=== PATIENT | female | born 1995 | race African-American/Black ===

== ENCOUNTER 2016-10-07 13:27 | Emergency (ER) | payer OTHER ==
[2016-10-07] MEDS ORDERED: Ketorolac INJ* 30 MG/ML 1 ML VIAL IV ONE (14:04)
[2016-10-07] MEDS ORDERED: NS 0.9% 1000 ML* 1,000 ML IV ONE (14:05)
[2016-10-07 14:24] LABS: Hematocrit 43 % (35-47); Hemoglobin 14.1 g/dl (12.0-16.0); Mean Corpuscular HGB Conc 33 g/dl (31-36); Mean Corpuscular Hemoglobin 28 pg (27-31); Mean Corpuscular Volume 85 fL (80-97); Mean Platelet Volume 9 um3 (7.4-10.4); Red Blood Count 5.05 10^6/ul (4.0-5.4); Red Cell Distribution Width 13 % (10.5-15); White Blood Count 12.1 10^3/ul (3.5-10.8)
[2016-10-07 14:43] LABS: ALT 15 U/L (7-52); AST 17 U/L (13-39); Albumin 4.1 g/dL (3.2-5.2); Alkaline Phosphatase 54 U/L (34-104); Anion Gap 4 mmol/L (2-11); BUN/Creatinine Ratio 11.3 (8-20); Blood Urea Nitrogen 11 mg/dL (6-24); CO2 Carbon Dioxide 28 mmol/L (22-32); Calcium 9.8 mg/dL (8.6-10.3); Chloride 102 mmol/L (101-111); EGFR African American 93.2 (>60); EGFR Non-African American 72.5 (>60); Globulin 3.6 g/dL (2-4); Glucose 86 mg/dL (70-100); Potassium 3.6 mmol/L (3.5-5.0); Sodium 134 mmol/L (133-145); Total Protein 7.7 g/dL (6.4-8.9)
[2016-10-07 15:14] LABS: Urine Bacteria Absent (Absent); Urine Bilirubin Negative (Negative); Urine Glucose Negative (Negative); Urine Nitrite Negative (Negative)
[2016-10-07 16:22] VITALS: BP 129/85
--- NOTE | 2016-10-07 17:04 | ED ---
I, Oh,Sosky, scribed for Lenin Christine MD on 10/07/16 at 1404 . GI/ HPI - HPI Summary HPI Summary: This 21 y/o female presents to ED for suprapubic abd cramping since a week ago. Positive gradually worsening vaginal bleeding since 2 days ago. She has been having her normal menstruation since 3 days ago, and pt initially dismissed it as her normal period. However, she became concerned when flow became heavier 2 days ago. LMP was 2 weeks ago. Positive migraine and nausea, but she reports that these symptoms are norm as per her period. Normal BM. PMHx includes ovarian cysts. - History of Current Complaint Chief Complaint: EDAbdPain Time Seen by Provider: 10/07/16 13:41 Stated Complaint: ABD PAIN Hx Obtained From: Patient, Medical Records Onset/Duration: Still Present Timing: Constant Pain Intensity: 8 Location of Pain: Suprapubic Pain Characteristics: Dull Associated Signs and Symptoms: Positive: Nausea, Other: - vaginal bleeding. Negative: Fever - Allergy/Home Medications Allergies/Adverse Reactions: Allergies Allergy/AdvReac Type Severity Reaction Status Date / Time Shellfish Allergy Allergy Unknown Verified 10/07/16 13:48 Reaction Details PMH/Surg Hx/FS Hx/Imm Hx Cardiovascular History: Reports: Hx Hypertension History: Reports: Other Problems/Disorders - Ovarian cysts Psychiatric History: Reports: Hx Anxiety Infectious Disease History: No Infectious Disease History: Denies: Traveled Outside the [place] in Last 30 Days - Family History Known Family History: Positive: Hypertension, Other - cancer - Social History Alcohol Use: Occasionally Hx Substance Use: No Substance Use Type: Reports: None Hx Tobacco Use: No Smoking Status (MU): Never Smoked Tobacco Review of Systems Negative: Fever, Chills Positive: Abdominal Pain, Nausea Positive: other - vaginal bleeding since 3 days ago. Worse since 2 days ago Positive: Headache All Other Systems Reviewed And Are Negative: Yes Physical Exam - Summary Physical Exam Summary: Well-appearing, no pain distress, BMI > 30 = obese Warm, dry, color reflects adequate perfusion Nml head/face Nml eyes Nml ENT Supple, non-tender CTA, breath sound present RRR Abd soft, Mild suprapubic tenderness Bowel sounds + Nml musculoskeletal Nml neuro (unless it is a neuro Pt, then click the first 4) Nml psychiatric, affect/mood appropriate Triage Information Reviewed: Yes Vital Signs On Initial Exam: Initial Vitals Temp Pulse Resp BP Pulse Ox 97.6 F 73 16 156/101 100 10/07/16 13:29 10/07/16 13:29 10/07/16 13:29 10/07/16 13:29 10/07/16 13:29 Vital Signs Reviewed: Yes - Parish Coma Scale Coma Scale Total: 15 Diagnostics - Vital Signs Vital Signs Temp Pulse Resp BP Pulse Ox 10/07/16 13:46 88 98 10/07/16 13:45 97.6 F 72 18 190/65 98 10/07/16 13:43 141/103 10/07/16 13:29 97.6 F 73 16 156/101 100 - Laboratory Lab Results: Lab Results 10/07/16 10/07/16 10/07/16 Range/Units 14:15 14:15 14:15 WBC 12.1 H (3.5-10.8) 10^3/ul RBC 5.05 (4.0-5.4) 10^6/ul Hgb 14.1 (12.0-16.0) g/dl Hct 43 (35-47) % MCV 85 (80-97) fL MCH 28 (27-31) pg MCHC 33 (31-36) g/dl RDW 13 (10.5-15) % Plt Count 293 (150-450) 10^3/ul MPV 9 (7.4-10.4) um3 Neut % (Auto) 67.5 (38-83) % Lymph % (Auto) 25.6 (25-47) % Terry % (Auto) 5.3 (1-9) % Eos % (Auto) 0.9 (0-6) % Baso % (Auto) 0.7 (0-2) % Absolute Neuts (auto) 8.2 H (1.5-7.7) 10^3/ul Absolute Lymphs (auto) 3.1 (1.0-4.8) 10^3/ul Absolute Monos (auto) 0.6 (0-0.8) 10^3/ul Absolute Eos (auto) 0.1 (0-0.6) 10^3/ul Absolute Basos (auto) 0.1 (0-0.2) 10^3/ul Absolute Nucleated RBC 0.03 10^3/ul Nucleated RBC % 0.2 Sodium 134 (133-145) mmol/L Potassium 3.6 (3.5-5.0) mmol/L Chloride 102 (101-111) mmol/L Carbon Dioxide 28 (22-32) mmol/L Anion Gap 4 (2-11) mmol/L BUN 11 (6-24) mg/dL Creatinine 0.97 H (0.51-0.95) mg/dL Est GFR ( Amer) 93.2 (>60) Est GFR (Non-Af Amer) 72.5 (>60) BUN/Creatinine Ratio 11.3 (8-20) Glucose 86 (70-100) mg/dL Lactic Acid (0.5-2.0) mmol/L Calcium 9.8 (8.6-10.3) mg/dL Total Bilirubin 0.30 (0.2-1.0) mg/dL AST 17 (13-39) U/L ALT 15 (7-52) U/L Alkaline Phosphatase 54 (34-104) U/L Total Protein 7.7 (6.4-8.9) g/dL Albumin 4.1 (3.2-5.2) g/dL Globulin 3.6 (2-4) g/dL Albumin/Globulin Ratio 1.1 (1-3) Beta HCG, Quant < 0.60 mIU/mL Urine Color Red A Urine Appearance Cloudy Urine pH 6.0 (5-9) Ur Specific [place] 1.014 (1.010-1.030) Urine Protein 1+(30 mg/dl) H (Negative) Urine Ketones Negative (Negative) Urine Blood 3+ H (Negative) Urine Nitrate Negative (Negative) Urine Bilirubin Negative (Negative) Urine Urobilinogen Negative (Negative) Ur Leukocyte Esterase 1+ H (Negative) Urine WBC (Auto) 3+(>20/hpf) H (Absent) Urine RBC (Auto) 3+(>10/hpf) H (Absent) Ur Squamous Epith Cells Present H (Absent) Urine Bacteria Absent (Absent) Urine Glucose Negative (Negative) Urine Ascorbic Acid * H (Negative) 10/07/16 Range/Units 14:15 WBC (3.5-10.8) 10^3/ul RBC (4.0-5.4) 10^6/ul Hgb (12.0-16.0) g/dl Hct (35-47) % MCV (80-97) fL MCH (27-31) pg MCHC (31-36) g/dl RDW (10.5-15) % Plt Count (150-450) 10^3/ul MPV (7.4-10.4) um3 Neut % (Auto) (38-83) % Lymph % (Auto) (25-47) % Terry % (Auto) (1-9) % Eos % (Auto) (0-6) % Baso % (Auto) (0-2) % Absolute Neuts (auto) (1.5-7.7) 10^3/ul Absolute Lymphs (auto) (1.0-4.8) 10^3/ul Absolute Monos (auto) (0-0.8) 10^3/ul Absolute Eos (auto) (0-0.6) 10^3/ul Absolute Basos (auto) (0-0.2) 10^3/ul Absolute Nucleated RBC 10^3/ul Nucleated RBC % Sodium (133-145) mmol/L Potassium (3.5-5.0) mmol/L Chloride (101-111) mmol/L Carbon Dioxide (22-32) mmol/L Anion Gap (2-11) mmol/L BUN (6-24) mg/dL Creatinine (0.51-0.95) mg/dL Est GFR ( Amer) (>60) Est GFR (Non-Af Amer) (>60) BUN/Creatinine Ratio (8-20) Glucose (70-100) mg/dL Lactic Acid 1.1 (0.5-2.0) mmol/L Calcium (8.6-10.3) mg/dL Total Bilirubin (0.2-1.0) mg/dL AST (13-39) U/L ALT (7-52) U/L Alkaline Phosphatase (34-104) U/L Total Protein (6.4-8.9) g/dL Albumin (3.2-5.2) g/dL Globulin (2-4) g/dL Albumin/Globulin Ratio (1-3) Beta HCG, Quant mIU/mL Urine Color Urine Appearance Urine pH (5-9) Ur Specific Penn (1.010-1.030) Urine Protein (Negative) Urine Ketones (Negative) Urine Blood (Negative) Urine Nitrate (Negative) Urine Bilirubin (Negative) Urine Urobilinogen (Negative) Ur Leukocyte Esterase (Negative) Urine WBC (Auto) (Absent) Urine RBC (Auto) (Absent) Ur Squamous Epith Cells (Absent) Urine Bacteria (Absent) Urine Glucose (Negative) Urine Ascorbic Acid (Negative) Result Diagrams: 10/07/16 14:15 10/07/16 14:15 Lab Statement: Any lab studies that have been ordered have been reviewed, and results considered in the medical decision making process. GIGU Course/Dx - Course Course Of Treatment: Ms. Hurtado presented with unusually heavy bleeding which started early for her cycle and is accompanied by a lot of cramping. Her labs revealed that she has not lost a significant amount of blood and she is not . I will have her F/U with her policy specialist: Dr. Camara. - Diagnoses Provider Diagnoses: Dysfunctional uterine bleeding Discharge - Discharge Plan Condition: Stable Disposition: HOME Patient Education Materials: Dysfunctional Uterine Bleeding (ED) Referrals: Franko Mccormick MD [Primary Care Provider] - 2 Days Delmer Camara MD [Medical Doctor] - 2 Days The documentation as recorded by the David zayas Soohyun accurately reflects the service I personally performed and the decisions made by me, Lenin Christine MD.
== END 2016-10-07 17:25 | disposition home or self-care (01) ==
LOC: ED 13:27
DX: N93.8 Other specified abnormal uterine and vaginal bleeding (principal); R11.0 Nausea; R51 Headache; R10.9 Unspecified abdominal pain
CPT/HCPCS: 36415; 80053; 81003; 81015; 83605; 84702; 85025; 87086; 96374; 99282; J1885

== ENCOUNTER 2018-10-11 07:57 | Emergency (ER) | payer OTHER ==
[2018-10-11] MEDS ORDERED: Naproxen TAB* 250 MG PO ONE (08:16)
--- NOTE | 2018-10-11 08:17 | ED ---
Abdominal Pain/Female - HPI Summary HPI Summary: Pt. is a 23 y.o female who presents to the ER for lower abd. pain x several days. Pt. states she has a hx of PCOS and abnormal uterine bleeding. Pt. states she is currently having her menstrual cycle and states she typically bleeds for about 4 weeks. Pt. states she typically has pelvic cramping with her cycle. Pt. states pain was worse today so she presents for evaluation. She notes pain is improved with NSAIDS. Pt. notes she follows with Dr. Camara's office and has been tried on two forms of control but states they were dc secondary to side effects. She denies being sexually active. She denies fever, cp, sob, dizziness, fever, vaginal dc. Sxs are mild-moderate in severity. No current modifying factors. - History of Current Complaint Chief Complaint: EDAbdPain Stated Complaint: SEVERE CRAMPING PER PT Time Seen by Provider: 10/11/18 08:04 Hx Obtained From: Patient Pain Intensity: 9 Allergies/Adverse Reactions: Allergies Allergy/AdvReac Type Severity Reaction Status Date / Time shellfish derived Allergy Hives Verified 10/11/18 08:03 PMH/Surg Hx/FS Hx/Imm Hx Previously Healthy: Yes Cardiovascular History: Reports: Hx Hypertension History: Reports: Other Problems/Disorders - Ovarian cysts Psychiatric History: Reports: Hx Anxiety Infectious Disease History: No Infectious Disease History: Denies: Traveled Outside the [place] in Last 30 Days - Family History Known Family History: Positive: Hypertension, Other - cancer - Social History Occupation: Student Lives: With Family Alcohol Use: Occasionally Hx Substance Use: No Substance Use Type: Reports: None Hx Tobacco Use: No Smoking Status (MU): Never Smoked Tobacco Review of Systems Constitutional: Negative Negative: Fever, Chills Cardiovascular: Negative Respiratory: Negative Positive: Abdominal Pain. Negative: Vomiting, Diarrhea Positive: other - vaginal bleeding. Negative: discharge All Other Systems Reviewed And Are Negative: Yes Physical Exam Triage Information Reviewed: Yes Vital Signs On Initial Exam: Initial Vitals Temp Pulse Resp BP Pulse Ox 98.3 F 82 16 159/112 99 10/11/18 08:00 10/11/18 08:00 10/11/18 08:00 10/11/18 08:00 10/11/18 08:00 Vital Signs Reviewed: Yes Appearance: Positive: Well-Appearing - Pt. sitting on bed in NAD. Comfortable. Skin: Positive: Warm, Dry Head/Face: Positive: Normal Head/Face Inspection Eyes: Positive: Normal, EOMI Neck: Positive: Supple Respiratory/Lung Sounds: Positive: Clear to Auscultation, Breath Sounds Present Cardiovascular: Positive: Normal, RRR Abdomen Description: Positive: Other: - Obese. Abd. is soft without tenderness. Musculoskeletal: Positive: Normal, Strength/ROM Intact Neurological: Positive: Normal, CN Intact II-III Psychiatric: Positive: Affect/Mood Appropriate Diagnostics - Vital Signs Vital Signs Temp Pulse Resp BP Pulse Ox 10/11/18 08:00 98.3 F 82 16 159/112 99 - Laboratory Result Diagrams: 10/11/18 08:28 10/11/18 08:28 Lab Statement: Any lab studies that have been ordered have been reviewed, and results considered in the medical decision making process. Abdominal Pain Fem Course/Dx - Course Course Of Treatment: Pt. presenting with ongoing vaginal bleeding and pain. She is afebrile. BP elevated. Pt. has a benign abd. exam. Labs shows stable H and H. Negative . U/S contaminated. Pt. feeling a bit better after naproxen. Results discussed. Will haver her f.u with HOUSEKEEPING COORDINATOR for further treatemnt. To return if sxs change or worsen. Pt. understands and agrees with plan. - Diagnoses Differential Diagnosis: Positive: Appendicitis, Ectopic , Pelvic Inflammatory Disease, , Urinary Tract Infection Provider Diagnoses: Dysmenorrhea Discharge - Sign-Out/Discharge Documenting (check all that apply): Patient Departure Patient Received Moderate/Deep Sedation with Procedure: No - Discharge Plan Condition: Good Disposition: HOME Prescriptions: Naproxen [Naproxen 500 mg tab] 500 mg PO BID #20 tablet Patient Education Materials: Dysmenorrhea (ED) Referrals: Delmer Camara MD [Medical Doctor] - Additional Instructions: Schedule a follow up appointment with Dr. Camara within one week Naproxen as directed for pain Apply warm compresses to help with pain Return to ER for increased pain, fever, vomiting, or if concerned - Billing Disposition and Condition Condition: GOOD Disposition: Home
[2018-10-11 08:33] LABS: ABS Basophils 0.1 10^3/ul (0-0.2); ABS Eosinophils 0.2 10^3/ul (0-0.6); ABS Lymphocytes 2.4 10^3/ul (1.0-4.8); ABS Monocytes 0.4 10^3/ul (0-0.8); ABS Neutrophils 5.6 10^3/ul (1.5-7.7); Eosinophil % 1.7 %; Hematocrit 37 % (35-47); Hemoglobin 12.6 g/dL (12.0-16.0); Lymphocyte % 27.6 %; Mean Corpuscular HGB Conc 34 g/dL (31-36); Mean Corpuscular Hemoglobin 28 pg (27-31); Mean Corpuscular Volume 81 fL (80-97); Mean Platelet Volume 8.6 fL (7.4-10.4); Nucleated Red Blood Cells % 0.1; Platelet Count 301 10^3/uL (150-450); Red Blood Count 4.59 10^6 /uL (3.70-4.87); Red Cell Distribution Width 14 % (10-15); White Blood Count 8.7 10^3/uL (3.5-10.8)
[2018-10-11 08:37] LABS: Urine Appearance Cloudy; Urine Bacteria Absent (Absent); Urine Bilirubin Negative (Negative); Urine Blood 3+ (Negative); Urine Color Red; Urine Glucose Negative (Negative); Urine Ketones Negative (Negative); Urine Nitrite Negative (Negative); Urine Protein Negative (Negative); Urine Red Blood Cell 3+(>10/hpf) (Absent); Urine Squamous Epithelial Cell Present (Absent); Urine Urobilinogen Negative (Negative); Urine White Blood Cell Absent (Absent)
[2018-10-11 08:57] LABS: Anion Gap 6 mmol/L (2-11); BUN/Creatinine Ratio 10.8 (8-20); Blood Urea Nitrogen 10 mg/dL (6-24); CO2 Carbon Dioxide 28 mmol/L (22-32); Calcium 9.1 mg/dL (8.6-10.3); Chloride 103 mmol/L (101-111); EGFR African American 90.4 (>60); EGFR Non-African American 74.7 (>60); Glucose 99 mg/dL (70-100); Potassium 4.2 mmol/L (3.5-5.0); Sodium 137 mmol/L (135-145)
[2018-10-11 09:04] LABS: HCG Pregnancy < 0.60 mIU/mL
[2018-10-11 09:17] VITALS: BP 137/84
== END 2018-10-11 09:16 | disposition home or self-care (01) ==
LOC: ED 07:57
DX: N94.6 Dysmenorrhea, unspecified (principal); Z32.02 Encounter for pregnancy test, result negative; I10 Essential (primary) hypertension; Z91.013 Allergy to seafood
CPT/HCPCS: 36415; 80048; 81003; 81015; 84702; 85025; 87086; 99282; A9270-GY

== ENCOUNTER 2018-11-17 11:39 | Emergency (ER) | payer OTHER ==
[2018-11-17 15:45] VITALS: BP 132/86
--- NOTE | 2018-11-17 18:26 | ED ---
Lower Extremity - HPI Summary HPI Summary: Pt. is a 23 y.o female who presents to the ER for a right knee and ankle injury a 3 days ago. Pt. states she tripped and fell landing onto her right knee and twisting right ankle. Able to ambulate with pain. Walking makes sxs worse. Motrin and rest improve sxs. Sxs are mild in severity. - History of Current Complaint Chief Complaint: EDExtremityLower Stated Complaint: RT KNEE/RT ANKLE INJURY PER PT Time Seen by Provider: 11/17/18 15:01 Pain Intensity: 6 Pain Scale Used: 0-10 Numeric - Allergies/Home Medications Allergies/Adverse Reactions: Allergies Allergy/AdvReac Type Severity Reaction Status Date / Time shellfish derived Allergy Hives Verified 10/11/18 08:03 PMH/Surg Hx/FS Hx/Imm Hx Previously Healthy: Yes Cardiovascular History: Reports: Hx Hypertension History: Reports: Other Problems/Disorders - Ovarian cysts Psychiatric History: Reports: Hx Anxiety Infectious Disease History: No Infectious Disease History: Denies: Traveled Outside the [place] in Last 30 Days - Family History Known Family History: Positive: Hypertension, Other - cancer, Non-Contributory - Social History Occupation: Employed Full-time Lives: With Family Alcohol Use: Occasionally Hx Substance Use: No Substance Use Type: Reports: None Hx Tobacco Use: No Smoking Status (MU): Never Smoked Tobacco Review of Systems Positive: Other - Right knee and ankle pain Skin: Negative Neurological: Negative Negative: Weakness, Paresthesia, Numbness All Other Systems Reviewed And Are Negative: Yes Physical Exam Triage Information Reviewed: Yes Vital Signs On Initial Exam: Initial Vitals Temp Pulse Resp BP Pulse Ox 98.2 F 85 18 163/110 97 11/17/18 11:49 11/17/18 11:49 11/17/18 11:49 11/17/18 11:49 11/17/18 11:49 Vital Signs Reviewed: Yes Appearance: Positive: Well-Appearing - Pt. lying in hallway stretcher in NAD. Skin: Positive: Warm, Dry Head/Face: Positive: Normal Head/Face Inspection Eyes: Positive: Normal, EOMI Neck: Positive: Supple Musculoskeletal: Positive: Other - Mild edema to right ankle with lateral tenderness. Good pedal pulse. Diffuse knee tenderness. Full ROM with pain pain of knee. Able to lift leg off of bed. Neurological: Positive: Normal, CN Intact II-III Psychiatric: Positive: Affect/Mood Appropriate Diagnostics - Vital Signs Vital Signs Temp Pulse Resp BP Pulse Ox 11/17/18 15:44 97.6 F 68 16 132/86 99 11/17/18 14:13 97.7 F 79 16 132/92 97 11/17/18 11:49 98.2 F 85 18 163/110 97 - Laboratory Lab Statement: Any lab studies that have been ordered have been reviewed, and results considered in the medical decision making process. Lower Extremity Course/Dx - Course Course Of Treatment: Knee and ankle x-rays negative for acute findings per radiology. Patient ambulatory in hallway without difficulty. Advised ice and elevate intermittently. Anti-inflammatories for pain as directed. To follow- up with PCP for further valuation of pain persist. Patient understands and agrees with plan. - Diagnoses Differential Diagnosis/HQI/PQRI: Positive: Arthritis, Dislocation, Fracture ( Closed), Sprain, Strain Provider Diagnoses: Knee contusion, Ankle sprain Discharge ED - Sign-Out/Discharge Documenting (check all that apply): Patient Departure Patient Received Moderate/Deep Sedation with Procedure: No - Discharge Plan Condition: Good Disposition: HOME Patient Education Materials: Ankle Sprain (ED), Knee Sprain (ED) Referrals: Elias Wesley MD [Medical Doctor] - Franko Mccormick MD [Primary Care Provider] - Additional Instructions: Follow up with PCP or orthopedics if pain persist Ice and elevate Activity as tolerated Ibuprofen for pain as directed Return to ER if symptoms change or worsen - Billing Disposition and Condition Condition: GOOD Disposition: Home
== END 2018-11-17 15:42 | disposition home or self-care (01) ==
LOC: ED 11:39
DX: S80.01XA Contusion of right knee, initial encounter (principal); S93.401A Sprain of unspecified ligament of right ankle, initial encounter; W01.0XXA Fall on same level from slipping, tripping and stumbling without subsequent striking against object, initial encounter; Y92.9 Unspecified place or not applicable; I10 Essential (primary) hypertension; F41.9 Anxiety disorder, unspecified; Z79.899 Other long term (current) drug therapy
CPT/HCPCS: 99282

== ENCOUNTER 2018-12-10 10:44 | Emergency (ER) | payer OTHER ==
[2018-12-10 10:56] VITALS: BP 143/76
--- NOTE | 2018-12-10 11:09 | UC ---
Dental HPI - HPI Summary HPI Summary: 23 yo female presents with dental pain. She tells me that she has two broken teeth, one on the top right and one on the bottom left. She has had abscesses here in the past and thinks she does again. Over the last 3-4 days has had increasing pain, swelling, and noticed bumps at the gums. She is eating and drinking well. Denies fever or chills. She does not have a dentist - History of Current Complaint Chief Complaint: UCDentalProblem Stated Complaint: DENTAL COMPLAINT Time Seen by Provider: 12/10/18 11:02 Hx Obtained From: Patient Hx Last Menstrual Period: 12/08/18 Onset/Duration: Gradual Onset Severity: Moderate Pain Intensity: 8 Pain Scale Used: 0-10 Numeric - Allergies/Home Medications Allergies/Adverse Reactions: Allergies Allergy/AdvReac Type Severity Reaction Status Date / Time shellfish derived Allergy Hives Verified 12/10/18 10:56 PMH/Surg Hx/FS Hx/Imm Hx - Additional Past Medical History Additional PMH: None - Surgical History Surgical History: Yes Surgery Procedure, Year, and Place: 2014 Breast reduction - Family History Known Family History: Positive: Hypertension, Other - cancer - Social History Lives: With Family Alcohol Use: Occasionally Substance Use Type: None Smoking Status (MU): Never Smoked Tobacco Review of Systems All Other Systems Reviewed And Are Negative: No Constitutional: Positive: Negative Skin: Positive: Negative Eyes: Positive: Negative ENT: Positive: Dental Pain Respiratory: Positive: Negative Cardiovascular: Positive: Negative Neurological: Positive: Negative Psychological: Positive: Negative Physical Exam - Summary Physical Exam Summary: GENERAL: NAD. WDWN. No pain distress. SKIN: No rashes, sores, lesions, or open wounds. HEENT: Head: AT/NC Nose: Nasal mucosa pink and moist. NTTP maxillary and frontal sinus. Throat: Posterior oropharynx without exudates, erythema, or tonsillar enlargement. Uvula midline. NECK: Supple. Nontender. No lymphadenopathy. CHEST: No accessory muscle use. Breathing comfortably and in no distress. CV: Pulses intact. Cap refill <2seconds NEURO: Alert. PSYCH: Age appropriate behavior. Triage Information Reviewed: Yes Vital Signs: Initial Vital Signs Temp 98.5 F 12/10/18 10:51 Pulse 97 12/10/18 10:51 Resp 18 12/10/18 10:51 BP 143/76 12/10/18 10:51 Pulse Ox 99 12/10/18 10:51 Vital Signs Reviewed: Yes Dental: Positive: Percussion Tenderness @ - Tooth #3 and Tooth #19, Gross Decay/ Caries @ - throughout, Dental Fracture @ - Tooth #3 and Tooth #19, Abscess @ - Tooth #3 and Tooth #19, Cellulitis @ - Tooth #3 and Tooth #19. Negative: Cervical Lymphadenopathy, Bleeding Dental Complaint Course/Dx - Course Course Of Treatment: Tooth #3 and Tooth #19 abscess. She was provided with a list of local dentists and advised to f/u as soon as possible for further dental care - Differential Dx/Diagnosis Provider Diagnosis: Dental abscess Discharge ED - Sign-Out/Discharge Documenting (check all that apply): Patient Departure All imaging exams completed and their final reports reviewed: No Studies - Discharge Plan Condition: Stable Disposition: HOME Prescriptions: Amoxicillin PO (*) [Amoxicillin 500 MG CAP*] 500 mg PO Q12H #14 cap Chlorhexidine MW 0.12% 473ML* [Peridex Mouth Wash 0.12%] 15 ml SWISH SPIT DAILY #1 btl Patient Education Materials: Dental Abscess (ED) Referrals: Franko Mccormick MD [Primary Care Provider] - Additional Instructions: If you develop a fever, shortness of breath, chest pain, new or worsening symptoms - please call your PCP or go to the ED immediately. - Billing Disposition and Condition Condition: STABLE Disposition: Home
== END 2018-12-10 11:15 | disposition home or self-care (01) ==
LOC: UCEAST 10:44
DX: K04.7 Periapical abscess without sinus (principal)
CPT/HCPCS: 99212; G0463